=== PATIENT | female | born 1980 | race Caucasian/White ===

== ENCOUNTER 2023-09-24 05:45 | Day surgery (SDC) | payer OTHER ==
[2023-09-24] MEDS: Sodium Chloride 0.9% 1,000 ML IV SCH (06:48)
[2023-09-24] MEDS: Indocyanine Green 25 MG SDV IV ONE (06:56)
[2023-09-24] MEDS ORDERED: ceFAZolin 2 GM in Sodium Chloride 0.9% 100 ML IV ONE (07:00)
[2023-09-24] MEDS: metroNIDAZOLE/Normal Saline 500 MG in Premix Bag 1 BAG IV ONE (07:03)
[2023-09-24] MEDS ORDERED: Propofol 200 MG/20 ML SDV ONE (07:25)
[2023-09-24] MEDS ORDERED: Glycopyrrolate 0.2 MG/ML 5 ML MDV ONE (07:25)
[2023-09-24] MEDS ORDERED: fentaNYL 250 MCG/5 ML SDV ONE (07:25)
[2023-09-24] MEDS ORDERED: Rocuronium 50 MG/5 ML Vial ONE ×2 (07:25→08:39)
[2023-09-24] MEDS ORDERED: Dexamethasone 4 MG/ML SDV ONE (07:25)
[2023-09-24] MEDS ORDERED: Ondansetron 4 MG/2 ML SDV ONE (07:25)
[2023-09-24] MEDS ORDERED: Neostigmine Methylsulfate 10 MG/10 ML MDV ONE (07:25)
[2023-09-24] MEDS: ceFAZolin 2 GM in Premix Bag 1 BAG IV ONE (08:00)
[2023-09-24] MEDS: Ropivacaine 35 ML, dexAMETHasone 8 MG, EPINEPHrine 0.4 MG, Sodium Chloride 0.9% 42.6 ML NERVRT SCH (08:28)
[2023-09-24] MEDS ORDERED: fentaNYL 100 MCG/2 ML SDV ONE ×2 (08:40→09:00)
[2023-09-24] MEDS: Lidocaine 1% with EPINEPHrine 1:100,000 50 ML MDV ONE (08:42)
[2023-09-24] MEDS: Bupivacaine 0.5% 50 ML MDV ONE (08:42)
[2023-09-24] MEDS ORDERED: Lactated Ringers 1,000 ML ONE (09:21)
[2023-09-24] MEDS ORDERED: Acetaminophen/HYDROcodone 325-5 MG Tab PO PRN (10:34)
[2023-09-24] MEDS: Acetaminophen/HYDROcodone 325-5 MG Tab PO PRN (11:02)
[2023-09-24] MEDS: Ondansetron 4 MG/2 ML SDV IVPUSH PRN (13:39)
[2023-09-24] MEDS: Ibuprofen 200 MG Tab PO ONE (14:07)
[2023-09-24 14:10] VITALS: BP 110/65; PULSE 66
== END 2023-09-24 15:00 | disposition home or self-care (01) ==
LOC: JP.SDS 05:45
PROVIDERS: ATTEND Surgery
DX: K80.10 Calculus of gallbladder with chronic cholecystitis without obstruction (principal); K82.8 Other specified diseases of gallbladder; F41.9 Anxiety disorder, unspecified; F32.A Depression, unspecified
CPT/HCPCS: 47563; 88304; A9270; J0171; J0665; J0690; J1100; J1836; J2405; J2704; J2710; J2795; J3010; J3490; J7030; J7120